=== PATIENT | male | born 1985 | race Caucasian/White ===

== ENCOUNTER 2019-03-07 14:59 | Inpatient (IN) ==
[2019-03-07] MEDS ORDERED: IOPAMIDOL 100 ML BOTTLE IV ONE (15:00)
--- NOTE | 2019-03-07 15:15 | Emergency Department Note ---
Animal Bite HPI - General Chief Complaint: Animal Bite Stated Complaint: spider bite Time Seen by Provider: 03/07/19 15:05 Source: patient Mode of arrival: ambulatory Limitations: no limitations - History of Present Illness HPI Narrative: Patient states he was bit by a spider one week ago. Actually is not quite sure. It awaits her with pain in the back of the neck, he works and lives in [place] and he was placed on an antibiotic 2 days ago when he went in to get checked. He has developed increased redness and swelling, increased discomfort in the area where he thought the bite was , is visiting the area and thus decided to come in for another visit. 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 Denies injury at work. Does have discomfort and pain in the area. There is also a weeping lesion that has developed to the occipital region - Related Data Previous Rx's Medication Instructions Recorded Amoxicillin 500 mg PO Q8H #30 tab 01/14/18 HYDROcodone/APAP 5/325MG [[place] 1 tab PO Q4HP PRN #10 tab 01/14/18 5-325Mg] Allergies Allergy/AdvReac Type Severity Reaction Status Date / Time No Known Drug Allergies Allergy Verified 01/14/18 20:11 Review of Systems All systems ED: reviewed and negative except as stated. Constitutional: Denies: fever, chills, weakness Past Medical History - Past Medical History Medical history: Reports: non-contributory Psychiatric history: Reports: no psych history Surgical history ED: Reports: non-contributory Family history: Reports: no significant family history - Social History smoking status: Never smoker Alcohol use: Reports: Occasionally Drug use: Reports: none Physical Exam Limitations: no limitations General appearance: alert, in no apparent distress Head: atraumatic, normocephalic Eye: Present: normal appearance, PERRL, EOMI, conjunctival injection ENT: Present: mucous membranes moist, TM's normal bilaterally, normal external ear exam, other (he has significant swelling and tenderness to the posterior aspect of the neck, right-sided with a diffuse area of excoriation measuring about 1 x 2 cm. Tenderness and induration measuring about 5 x 6 cm) Neck: Present: full ROM, trachea midline. Absent: meningismus Chest: Present: normal inspection, symmetric chest wall rise. Absent: tenderness Respiratory: Present: normal lung sounds bilaterally. Absent: respiratory distress, rales/crackles Cardiovascular: Present: regular rate, normal rhythm, normal heart sounds Abdominal: Present: soft, normal bowel sounds. Absent: tenderness, guarding Extremities: Present: normal inspection, full ROM. Absent: tenderness Back: Present: normal inspection. Absent: CVA tenderness (R), CVA tenderness (L), vertebral tenderness Neurological: Present: alert, oriented X3, CN II-XII intact, normal gait. Absent: motor sensory deficit Skin: Present: warm, dry, rash, erythema Course - Reevaluation(s) Reevaluation #1: Discussed the case with Dr. lozoya. He wants to get a CT scan with contrast of t he area to evaluate for possible drainage. We will start him on vancomycin given the significance of his infection, elevated white blood cell count, elevated CRP Reevaluation #2: Was called by Dr. Yovani martines regarding CT scan findings of. He does have cellulitis but no area of pockets or pus collection. Plan is to admit for IV antibiotics and. Hospitalist contacted. Also Dr. lozoya notified Reevaluation #3: Discussed possible admission with Dr. Parker, also Dr. lozoya who will be happy to consult. He is planning on seeing the patient tomorrow morning Vital Signs Temperature 99.8 F H 03/07/19 15:00 Pulse Rate 111 H 03/07/19 15:00 Respiratory Rate 18 03/07/19 15:00 Blood Pressure 129/83 03/07/19 15:00 Pulse Oximetry (%) 95 03/07/19 15:00 Temperature 99.8 F H 03/07/19 15:00 Pulse Rate 111 H 03/07/19 15:00 Respiratory Rate 18 03/07/19 15:00 Blood Pressure 129/83 03/07/19 15:00 Pulse Oximetry (%) 95 03/07/19 15:00 Animal Bite - [facility] Narrative Medical decision making narrative: Impression is cellulitis in the head and neck area associated with fever, significant soft tissue swelling, elevated white count and CRP. - Lab Data Lab results reviewed: Yes I reviewed the patient's lab results. Result diagrams: 03/07/19 15:38 03/07/19 15:38 Lab Results 03/07/19 03/07/19 Range/Units 15:38 15:38 WBC 16.3 H (4.5-11.0) K/mcL RBC 4.59 (4.50-5.90) M/mcL Hgb 14.7 (13.5-16.5) g/dL Hct 42.7 (41.0-55.0) % MCV 93.0 (80.0-100.0) fL MCH 32.0 (26.0-34.0) pg MCHC 34.4 (31.0-36.0) g/dL RDW 11.7 (11.5-14.5) % Plt Count 277 (140-440) K/mcL MPV 8.2 (7.4-10.4) fL Gran % 84.4 H (38.0-78.0) % Lymph % (Auto) 9.5 L (15.5-49.0) % [place] % (Auto) 5.7 (1.0-12.0) % Eos % (Auto) 0.2 (0.0-7.0) % Baso % (Auto) 0.2 (0.0-2.0) % Gran # 13.8 H (1.8-8.0) K/mcL Lymph # (Auto) 1.6 (1.5-4.8) K/mcL [place] # (Auto) 0.9 (0.1-0.9) K/mcL Eos # (Auto) 0 (0.0-0.7) K/mcL Baso # (Auto) 0 (0.0-0.3) K/mcL Sodium 133 (133-145) mmol/L Potassium 3.5 (3.3-5.1) mmol/L Chloride 96 (96-108) mmol/L Carbon Dioxide 25 (22-30) mmol/L Anion Gap 12.0 (8-16) BUN 15 (6-20) mg/dl Creatinine 1.3 H (0.7-1.2) mg/dl GFR Calculation 72 Glucose 97 (70-105) mg/dL Calcium 8.7 (8.6-10.4) mg/dl C-Reactive Protein 13.1 H (0.0-0.8) mg/dl - Radiology Data Radiology results reviewed: Yes I reviewed the patient's radiology results. Disposition Pt seen by [facility]/PA only: No Clinical Impression: Cellulitis of multiple sites of head and neck Disposition: Xfer As Outpt/Obs ([facility]) Condition: Good
[2019-03-07 16:02] LABS: Basophils # (Auto) 0 K/mcL (0.0-0.3); Basophils % (Auto) 0.2 % (0.0-2.0); Eosinophils # (Auto) 0 K/mcL (0.0-0.7); Eosinophils % (Auto) 0.2 % (0.0-7.0); Granulocytes % (Auto) 84.4 % (38.0-78.0); Hematocrit 42.7 % (41.0-55.0); Hemoglobin 14.7 g/dL (13.5-16.5); Lymphocytes # (Auto) 1.6 K/mcL (1.5-4.8); Lymphocytes % (Auto) 9.5 % (15.5-49.0); Mean Corpuscular HGB Conc 34.4 g/dL (31.0-36.0); Mean Platelet Volume 8.2 fL (7.4-10.4); Monocytes # (Auto) 0.9 K/mcL (0.1-0.9); Monocytes % (Auto) 5.7 % (1.0-12.0); Platelet Count 277 K/mcL (140-440); RBC 4.59 M/mcL (4.50-5.90); Red Cell Distribution Width 11.7 % (11.5-14.5); WBC 16.3 K/mcL (4.5-11.0)
[2019-03-07] MEDS ORDERED: VANCOMYCIN 1,500 MG in 0.9 % SODIUM CHLORIDE 500 ML IV ONE (16:34)
[2019-03-07 16:35] LABS: Blood Urea Nitrogen 15 mg/dl (6-20); C-Reactive Protein 13.1 mg/dl (0.0-0.8); Calcium 8.7 mg/dl (8.6-10.4); Carbon Dioxide 25 mmol/L (22-30); Chloride 96 mmol/L (96-108); Glomerular Filtration Rate 72; Glucose 97 mg/dL (70-105)
[2019-03-07] MEDS: HYDROmorphone 2 MG/ML VIAL IV PRN ×2 (17:08→17:41)
[2019-03-07] MEDS: ONDANSETRON 4 MG/2 ML VIAL IV ONE ×3 (17:39→22:46)
[2019-03-07] MEDS ORDERED: diphenhydrAMINE 50 MG/ML VIAL IV ONE (18:16)
[2019-03-07] MEDS ORDERED: cefTRIAXone 1 GM VIAL IV ONE (19:08)
[2019-03-07] MEDS ORDERED: CLINDAMYCIN 600 MG in DEXTROSE 5% IN WATER 50 ML IV SCH (19:45)
--- NOTE | 2019-03-07 20:01 | Internal Med History&Physical ---
Medical - H&P: HPI Patient information: Note initiated : 03/07/19 at 7:59 pm Service Date, if different from initiated Date: [] Patient: Elias Dotson 33 y/o M admitted on for Spider Bite. Chief Complaint: [] History of present illness: Mr. Donaldo Osborne is a 33 year old M 33-year-old male presents the ED with increase neck pain and swelling. He believes he was bit by spider 1 week ago and started on antibiotics (Bactrim) by urgent care in [place] 2 days ago but is developed worsening of the symptoms. As well as pain in the area. He is from out of town visiting, but because of the progression decided to come in the ED. In the ED is found to have a leukocytosis and a weeping lesion of his posterior neck as well as involvement of the right side of neck. Patient also mildly tachycardic and elevated creatinine 1.3 as well as elevated CRP. Case was discussed with Dr. Xie and a CT neck with contrast was performed which per notes did not show any abscess or other findings other than cellulitis. She denies any fever chills. Patient denies any headaches although does have history of migraines. No vision changes. 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 Review of Systems: Pertinent positives as above. Denies headache/f ever/chills/nausea/vomiting/chest or abdominal pain/cough/dyspnea/diarrhea. Remaining 10 point review of system reviewed negative Medical - H&P: PMH Medical history: Medical History Brain concussion (Acute) Closed head injury (Acute) Concussion without loss of consciousness (Acute) Cellulitis (Acute) Low Back Pain (Acute) MRSA cellulitis (Acute) Past surgical history: None Family history: States mother and father healthy Social History Denies tobacco alcohol or drugs. Medical - H&P: Meds Home Medications Medication Instructions Recorded Confirmed Type Amoxicillin 500 mg PO Q8H #30 tab 01/14/18 Rx HYDROcodone/APAP 5/325MG [[place] 1 tab PO Q4HP PRN #10 tab 01/14/18 Rx 5-325Mg] Allergies Allergy/AdvReac Type Severity Reaction Status Date / Time No Known Drug Allergies Allergy Verified 01/14/18 20:11 Medical - H&P: Exam - Constitutional Vitals: Temp Pulse Resp BP Pulse Ox 99.8 F H 111 H 18 129/83 95 03/07/19 15:00 03/07/19 15:00 03/07/19 15:00 03/07/19 15:00 03/07/19 15:00 Exam: General: Alert, Awake, No acute Distress Eyes/N/T: EOMI, PEERL, Head/Neck: Erythema/tenderness/warmth to the posterior and right side of the neck. Minimal weeping. Tenderness with rotation because of swelling CV: RRR, No murmurs, normal s1/s2 Pulm: Clear b/l, no wheezing/rhonchi/rales Abd: soft, nontender, +BS x4 Ext: no clubbing/cyanosis/edema Neuro: Alert, no focal deficits, moves all extremities, CN 2-12 grossly intact, symmetrical strength b/l upper/lower, sensations intact b/l upper/lower Skin: warm/dry Medical - H&P: Reslt - Labs CBC & Chem 7: 03/07/19 15:38 03/07/19 15:38 Labs: Short CBC 03/07/19 Range/Units 15:38 WBC 16.3 H (4.5-11.0) K/mcL Hgb 14.7 (13.5-16.5) g/dL Hct 42.7 (41.0-55.0) % Plt Count 277 (140-440) K/mcL BMP 03/07/19 15:38 Sodium 133 Potassium 3.5 Chloride 96 Carbon Dioxide 25 BUN 15 Creatinine 1.3 H Glucose 97 Calcium 8.7 - Impressions CT of the neck with contrast showed cellulitis no abscess per discussion with ED physician awaiting official report Medical - H&P: A/P - Narrative A/P Narrative: A: *Cellulitis of the neck/head: Failed outpatient bactrim. from spider bite -Case discussed with Dr. Granger from ED, also d/w with Dr. sanon -CT neck with cellulitis, no abscess *BASILIO: suspect bactrim related * P: -IV Vanco/clinda -WC/BC pending -IVFs, f/u renal fxn -ID consulted - -ppx: lovenox
--- NOTE | 2019-03-07 20:16 | Ultrasound Report ---
CLINICAL INFORMATION: abscess rt post neck COMPARISON: None. FINDINGS: There is no abscess identified. Diffuse increased echotexture throughout the subcutaneous soft tissues tissues compatible cellulitis. A 5 mm echogenic focus in the subdermal soft tissues with dirty shadowing likely represents a small amount atmospheric air. IMPRESSION: Cellulitis. No evidence of abscess Interpreted and Authenticated by: Freddie Benjamin 03/07/19
--- NOTE | 2019-03-07 20:21 | Cat Scan Report ---
CLINICAL INFORMATION: Spider bite in the posterior neck region now with marked erythema and pain. COMPARISON: None. TECHNIQUE: 80 cc of Isovue-370 were injected intravenously and 25 seconds later, 2.5 mm helical slices were obtained from the inferior orbit through the supraclavicular region. Following reconstruction, 2.5 mm sagittal and coronal reformations were processed. The exam was reviewed at bone and soft tissue windows . The exam was performed using radiation dose optimization techniques including, but not limited to, automated exposure control, adjustment of the mA and/or kV according to patient size and use of iterative reconstruction technique. FINDINGS: There is moderate cellulitis diffusely within the posterior cervical soft tissues. There is no discrete abscess and no radiopaque foreign body appreciated. The jugular /carotid vascular systems are normal. Thyroid is unremarkable. The true and false vocal cords, epiglottis, aryepiglottic folds, tongue base and prevertebral soft tissues are normal. No adenopathy. Cervical spine is normal curvature and alignment without osseous abnormality. The submandibular and parotid glands are normal and symmetric in size configuration and attenuation. Few mildly enlarged cervical lymph nodes seen in both carotid and jugular regions. - Almost certainly benign reactive adenopathy related to cellulitis IMPRESSION: Focal cellulitis in the posterior cervical region. No radiopaque foreign body or discrete abscess. C5-6: moderate broad disc spur complex resulting in mild central canal and moderate right lateral recess IV foraminal narrowing possibly impinging the exiting right C6 nerve root Interpreted and Authenticated by: Freddie Benjamin 03/07/19
[2019-03-07] MEDS ORDERED: VANCOMYCIN PER PHARMACY IV ONE (20:26)
[2019-03-07] MEDS ORDERED: 0.9 % SODIUM CHLORIDE 1,000 ML IV SCH (20:26)
[2019-03-07] MEDS ORDERED: ONDANSETRON 4 MG/2 ML VIAL IV PRN (20:26)
[2019-03-07] MEDS: HYDROcodone/APAP 5/325MG TABLET PO ONE ×2 (21:36→21:59)
[2019-03-07] MEDS: HYDROcodone/APAP 5/325MG TABLET PO PRN (21:37)
[2019-03-07] MEDS: 0.9 % SODIUM CHLORIDE 10 ML SYRINGE IV SCH (21:38)
[2019-03-07] MEDS: LACTOBACILLUS 1 CAPSULE PO SCH (21:42)
[2019-03-07] MEDS: ONDANSETRON 4 MG/2 ML VIAL ONE (21:59)
[2019-03-08 05:19] LABS: Basophils # (Auto) 0 K/mcL (0.0-0.3); Basophils % (Auto) 0.2 % (0.0-2.0); Eosinophils # (Auto) 0.1 K/mcL (0.0-0.7); Eosinophils % (Auto) 1.1 % (0.0-7.0); Hematocrit 40.9 % (41.0-55.0); Lymphocytes # (Auto) 1.7 K/mcL (1.5-4.8); Lymphocytes % (Auto) 14.8 % (15.5-49.0); Mean Cell Volume 93.4 fL (80.0-100.0); Mean Corpuscular HGB Conc 34.2 g/dL (31.0-36.0); Mean Platelet Volume 8.2 fL (7.4-10.4); Monocytes # (Auto) 0.8 K/mcL (0.1-0.9); Monocytes % (Auto) 6.9 % (1.0-12.0); Platelet Count 228 K/mcL (140-440); RBC 4.38 M/mcL (4.50-5.90); Red Cell Distribution Width 12.1 % (11.5-14.5); WBC 11.7 K/mcL (4.5-11.0)
[2019-03-08] MEDS ORDERED: CLINDAMYCIN 600 MG/4 ML VIAL ONE (05:23)
[2019-03-08] MEDS: CLINDAMYCIN 600 MG in DEXTROSE 5% IN WATER 50 ML IV SCH ×2 (05:26→14:53)
[2019-03-08] MEDS: 0.9 % SODIUM CHLORIDE 10 ML SYRINGE IV SCH ×3 (05:29→23:10)
[2019-03-08 05:42] LABS: ALT/SGPT 17 U/l (0-40); AST/SGOT 22 U/l (0-37); Albumin 3.6 gm/dL (3.2-5.2); Albumin/Globulin Ratio 1.2 (1.0-2.3); Alkaline Phosphatase 62 U/L (39-117); Bilirubin,Direct 0.2 mg/dL (0.0-0.3); Bilirubin,Total 1.2 mg/dL (0.0-1.0); Blood Urea Nitrogen 11 mg/dl (6-20); Calcium 8.2 mg/dl (8.6-10.4); Carbon Dioxide 25 mmol/L (22-30); Chloride 102 mmol/L (96-108); Glomerular Filtration Rate 79; Glucose 88 mg/dL (70-105); Lactate Dehydrogenase 208 U/L (94-250); Phosphorous 2.4 mg/dL (2.7-4.5); Triglycerides 48 mg/dl (<150); Uric Acid 5.5 mg/dL (2.5-8.0)
[2019-03-08] MEDS: ONDANSETRON 4 MG/2 ML VIAL ONE (06:01)
[2019-03-08] MEDS: ONDANSETRON 4 MG/2 ML VIAL IV ONE (06:01)
[2019-03-08] MEDS ORDERED: VANCOMYCIN PER PHARMACY IV SCH (07:15)
--- NOTE | 2019-03-08 07:53 | Internal Med Progress Note ---
Medical - PN: Subj Patient information: Note initiated : 03/08/19 at 7:51 am Service Date, if different from initiated Date: [] Patient: Elias Dotson 33 y/o M admitted on 03/07/19 for Spider Bite. Chief Complaint: [] Interval history: Mr. Donaldo Osborne is a 33 year old M 33-year-old male presents the ED with increase neck pain and swelling. He believes he was bit by spider 1 week ago and started on antibiotics (Bactrim) by urgent care in [place] 2 days ago but is developed worsening of the symptoms. As well as pain in the area. He is from out of town visiting, but because of the progression decided to come in the ED. In the ED is found to have a leukocytosis and a weeping lesion of his posterior neck as well as involvement of the right side of neck. Patient also mildly tachycardic and elevated creatinine 1.3 as well as elevated CRP. Case was discussed with Dr. Xie and a CT neck with contrast was performed which per notes did not show any abscess or other findings other than cellulitis. She denies any fever chills. Patient denies any headaches although does have history of migraines. No vision changes. 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 03/08 Next chills warm swollen but feels his swelling has improved. No overnight events. Denies fevers or chills. Review of Systems: denies headache/fever/chills/nausea/vomiting/chest or abdominal pain/cough/dyspnea/diarrhea. Otherwise see above. - Constitutional Vitals: Vital Signs Temp Pulse Resp BP Pulse Ox 98.3 F 74 18 93/56 95 03/08/19 04:12 03/08/19 04:12 03/08/19 04:12 03/08/19 04:12 03/08/19 04:12 Period Temp Pulse Resp BP Sys/Alvarez Pulse Ox Last 24 Hr 98.3 F-99.8 F 74-111 18-20 93-129/56-83 94-96 Intake and Output 03/07/19 03/08/19 03/08/19 21:59 05:59 13:59 Intake Total 311 200 54 Output Total 600 Balance 311 -400 54 Weight 82.1 kg Intake & Output: Intake & Output 03/07/19 03/08/19 03/08/19 21:59 05:59 13:59 Intake Total 311 200 54 Output Total 600 Balance 311 -400 54 Weight 82.1 kg Intake: IV 311 54 Cleocin 600 mg In Dextrose 5% 54 in Water 50 ml @ 100 mls/hr IV Q8H [facility] Rx#:[id number] Vancomycin 1,500 mg In Sodium 311 Chloride 0.9% 500 ml @ 333.3 mls/hr IV ONCE ONE Rx#: [id number] Oral 200 Output: Void Amount 600 Other: Urine Appearance Clear Urine Color Pale # Voids 2 Exam: General: Alert, Awake, No acute Distress Eyes/N/T: EOMI, Head/Neck: Erythema/tenderness/warmth to the posterior and right side of the neck. Minimal weeping. Tenderness with rotation because of swelling CV: RRR, No murmurs, Pulm: Clear b/l, no wheezing/rhonchi/rales Abd: soft, nontender, +BS x4 Ext: no clubbing/cyanosis/edema Neuro: Alert, no focal deficits, moves all extremities, Skin: warm/dry, except neck see above Medical - PN: Obj Da - Labs CBC & Chem 7: 03/08/19 04:23 03/08/19 04:23 Labs: Abnormal Lab Results 03/08/19 03/08/19 03/07/19 04:23 04:23 15:38 WBC 11.7 H RBC 4.38 L Hct 40.9 L Gran % Lymph % (Auto) 14.8 L Gran # 9.0 H Creatinine 1.3 H Calcium 8.2 L Phosphorus 2.4 L Total Bilirubin 1.2 H C-Reactive Protein 13.1 H 03/07/19 15:38 WBC 16.3 H RBC Hct Gran % 84.4 H Lymph % (Auto) 9.5 L Gran # 13.8 H Creatinine Calcium Phosphorus Total Bilirubin C-Reactive Protein Meds: Medications Acetaminophen (Tylenol) 650 mg PO Q6HP PRN; Protocol PRN Reason: Per Pain Protocol/Fever > 101 Hydrocodone Bitart/Acetaminophen ([place] 5/325mg) 1 tab PO Q4HP PRN; Protocol PRN Reason: Per Pain Protocol Enoxaparin Sodium (Lovenox) 40 mg SQ DAILY [facility] Clindamycin Phosphate 600 mg/ (Dextrose) 54 mls @ 100 mls/hr IV Q8H [facility]; Protocol Last Infusion: 03/08/19 06:47 Dose: Infused Documented by: Vancomycin HCl 1,500 mg/ (Sodium Chloride) 500 mls @ 333.3 mls/hr IV Q12H [facility] Lactobacillus Rhamnosus (Culturelle) 1 cap PO BID [facility] Last Admin: 03/07/19 21:42 Dose: Not Given Documented by: Morphine Sulfate (Morphine) 1 - 3 mg IV Q3HP PRN; Protocol PRN Reason: Per Pain Protocol Ondansetron HCl (Zofran) 4 mg IV Q6HP PRN PRN Reason: Nausea And Vomiting Sodium Chloride (Saline Flush) 10 ml IV Q8 [facility] Last Admin: 03/08/19 05:29 Dose: 10 ml Documented by: Vancomycin HCl (Vancomycin Per Pharmacy) 1 order IV UD [facility]; Protocol Medical - PN: A/P - Time Spent With Patient Total time spent is greater than 50% in coordination of care (as documented) at patient's floor/unit and/or counseling patient: - Narrative A/P Narrative: A: *Cellulitis of the neck/head: Failed outpatient bactrim. from spider bite -Case discussed with Dr. Granger from ED, also d/w with Dr. sanon -CT neck with cellulitis, no abscess -gram stain with GPC in clusters *Leukocytosis: 2/2 above, improving *BASILIO: suspect bactrim related, improving * P: -IV Vanco/clinda -WC/BC pending -ID consulted -ppx: lovenox
[2019-03-08] MEDS: LACTOBACILLUS 1 CAPSULE PO SCH ×2 (08:51→21:50)
[2019-03-08] MEDS: ENOXAPARIN 40 MG/0.4 ML SYRINGE SQ SCH (08:51)
[2019-03-08] MEDS: HYDROcodone/APAP 5/325MG TABLET PO PRN (08:51)
[2019-03-08] MEDS: VANCOMYCIN 1,500 MG in 0.9 % SODIUM CHLORIDE 500 ML IV SCH ×2 (09:47→20:50)
[2019-03-08] MEDS ORDERED: diphenhydrAMINE 50 MG/ML VIAL IV PRN (11:08)
--- NOTE | 2019-03-08 11:22 | Discharge Summary ---
Medical - DS: Prov Patient information: Note initiated : 03/08/19 at 11:20 am Service Date, if different from initiated Date: [] Patient: Elias Dotson a 33 y/o M admitted on 03/07/19 for Spider Bite. Chief Complaint: [] Date of admission: 03/07/19 20:22 Discharge date: 03/11/19 Consults: 03/07/19 Consult to Physician [CONS] Stat Comment: Consulting Provider: Bunny Mclaughlin Reason For Exam: Physician to Consult 03/07/19 20:26 Consult to Physician [CONS] Routine Comment: Consulting Provider: Roberto Carlos Patino Reason For Exam: Physician to Consult Medical - DS: Meds - Discharge Medications Prescriptions: ceFAZolin [Ancef] 2 gm IV Q8H #42 vial Prescription Printed Medical - DS: Hosp Hospital Course: Mr. Donaldo Osborne is a 33 year old M 33-year-old male presents the ED with increase neck pain and swelling. He believes he was bit by spider 1 week ago and started on antibiotics (Bactrim) by urgent care in [place] 2 days ago but is developed worsening of the symptoms. As well as pain in the area. He is from out of town visiting, but because of the progression decided to come in the ED. In the ED is found to have a leukocytosis and a weeping lesion of his posterior neck as well as involvement of the right side of neck. Patient also mildly tachycardic and elevated creatinine 1.3 as well as elevated CRP. Case was discussed with Dr. Xie and a CT neck with contrast was performed which per notes did not show any abscess or other findings other than cellulitis. She denies any fever chills. Patient denies any headaches although does have history of migraines. No vision changes. 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 03/08 Next chills warm swollen but feels his swelling has improved. No overnight events. Denies fevers or chills. 03/09 Patient fevers overnight. He reports increased swelling around the right side of his neck. Poor sleep. Transthoracic echo with no vegetations noted. Blood cultures growing MSSA. Denies shortness of breath or cough 03/10 Slept much better. Feeling better. Still has swelling but it feels like the swelling has improved some is able to rotate his neck a little bit he easier. No fevers overnight. No nausea. No chest pain cough or shortness of breath 03/11 Feeling well. Swelling continues to improve. No new complaints overnight events. Stable for discharge with antibiotic plan. Discharge diagnosis: Cellulitis of the neck, BASILIO - Time Spent with Patient Total time spent providing and/or coordinating discharge services: Greater than 30 minutes Medical - DS: Exam - Constitutional Vitals: Vital Signs Temp Pulse Pulse Resp BP BP Pulse Ox 03/08/19 04:12 98.3 F 74 18 93/56 95 03/07/19 23:00 98.4 F 86 18 114/71 96 03/07/19 20:50 98.8 F 88 20 118/75 94 03/07/19 20:34 99.8 F H 111 H 18 129/83 03/07/19 15:00 99.8 F H 111 H 18 129/83 95 Intake and Output 03/07/19 03/08/19 03/08/19 21:59 05:59 13:59 Intake Total 408 487 5990 Output Total 600 Balance 311 -400 1387 Intake: IV 311 1387 Sodium Chloride 0.9% 1,000 ml @ 1000 150 mls/hr IV .Q6H40M [facility] Rx#: [id number] Cleocin 600 mg In Dextrose 5% 54 in Water 50 ml @ 100 mls/hr IV Q8H [facility] Rx#:[id number] Vancomycin 1,500 mg In Sodium 311 333 Chloride 0.9% 500 ml @ 333.3 mls/hr IV ONCE ONE Rx#: [id number] Oral 200 Output: Void Amount 600 Other: Urine Appearance Clear Urine Color Pale # Voids 2 Weight 82.1 kg Medical - DS: Data Labs on day of discharge: Labs from last 24 hours 03/08/19 03/08/19 03/07/19 04:23 04:23 15:38 WBC 11.7 H RBC 4.38 L Hgb 14.0 Hct 40.9 L MCV 93.4 MCH 31.9 MCHC 34.2 RDW 12.1 Plt Count 228 MPV 8.2 Gran % 77.0 Lymph % (Auto) 14.8 L [place] % (Auto) 6.9 Eos % (Auto) 1.1 Baso % (Auto) 0.2 Gran # 9.0 H Lymph # (Auto) 1.7 [place] # (Auto) 0.8 Eos # (Auto) 0.1 Baso # (Auto) 0 Sodium 137 133 Potassium 3.8 3.5 Chloride 102 96 Carbon Dioxide 25 25 Anion Gap 10.0 12.0 BUN 11 15 Creatinine 1.2 1.3 H GFR Calculation 79 72 Glucose 88 97 Uric Acid 5.5 Calcium 8.2 L 8.7 Phosphorus 2.4 L Magnesium 2.3 Total Bilirubin 1.2 H Direct Bilirubin 0.2 GGT 13 AST 22 ALT 17 Alkaline Phosphatase 62 Lactate Dehydrogenase 208 C-Reactive Protein 13.1 H Total Protein 6.6 Albumin 3.6 Globulin 3.0 Albumin/Globulin Ratio 1.2 Triglycerides 48 03/07/19 15:38 WBC 16.3 H RBC 4.59 Hgb 14.7 Hct 42.7 MCV 93.0 MCH 32.0 MCHC 34.4 RDW 11.7 Plt Count 277 MPV 8.2 Gran % 84.4 H Lymph % (Auto) 9.5 L [place] % (Auto) 5.7 Eos % (Auto) 0.2 Baso % (Auto) 0.2 Gran # 13.8 H Lymph # (Auto) 1.6 [place] # (Auto) 0.9 Eos # (Auto) 0 Baso # (Auto) 0 Sodium Potassium Chloride Carbon Dioxide Anion Gap BUN Creatinine GFR Calculation Glucose Uric Acid Calcium Phosphorus Magnesium Total Bilirubin Direct Bilirubin GGT AST ALT Alkaline Phosphatase Lactate Dehydrogenase C-Reactive Protein Total Protein Albumin Globulin Albumin/Globulin Ratio Triglycerides Medical - DS: A/P - Patient/Caregiver Discharge Instructions Activity: increase activity as tolerated Diet: Regular Diet Additional Instructions: f/u with PCP within 7 days Prescriptions: ceFAZolin [Ancef] 2 gm IV Q8H #42 vial Prescription Printed Other Amb Orders: Basic Metabolic Panel Location: None Selected Complete Blood Count Location: None Selected - Follow up Plan Follow up with: Roberto Carlos Patino MD [Physician] - Disposition: Home, Self-Care Prognosis: Fair Rehab Potential: Fair Overall status at discharge: patient is progressing back to baseline
[2019-03-08] MEDS ORDERED: ceFAZolin 2 GM in DEXTROSE 5% IN WATER 50 ML IV SCH (15:15)
[2019-03-08] MEDS: ceFAZolin 1 GM VIAL IV SCH ×2 (16:52→23:09)
[2019-03-08] MEDS: ACETAMINOPHEN 325 MG TABLET PO PRN (18:51)
[2019-03-09] MEDS: ACETAMINOPHEN 325 MG TABLET PO PRN ×2 (03:51→13:23)
[2019-03-09] MEDS: 0.9 % SODIUM CHLORIDE 10 ML SYRINGE IV SCH ×3 (05:34→21:12)
[2019-03-09] MEDS: ceFAZolin 1 GM VIAL IV SCH ×3 (05:34→21:59)
--- NOTE | 2019-03-09 07:07 | Internal Med Progress Note ---
Medical - PN: Subj Patient information: Note initiated : 03/09/19 at 7:02 am Service Date, if different from initiated Date: [] Patient: Elias Dotson 33 y/o M admitted on 03/07/19 for Spider Bite. Chief Complaint: [] Interval history: Mr. Donaldo Osborne is a 33 year old M 33-year-old male presents the ED with increase neck pain and swelling. He believes he was bit by spider 1 week ago and started on antibiotics (Bactrim) by urgent care in [place] 2 days ago but is developed worsening of the symptoms. As well as pain in the area. He is from out of town visiting, but because of the progression decided to come in the ED. In the ED is found to have a leukocytosis and a weeping lesion of his posterior neck as well as involvement of the right side of neck. Patient also mildly tachycardic and elevated creatinine 1.3 as well as elevated CRP. Case was discussed with Dr. Xie and a CT neck with contrast was performed which per notes did not show any abscess or other findings other than cellulitis. She denies any fever chills. Patient denies any headaches although does have history of migraines. No vision changes. 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 03/08 Next chills warm swollen but feels his swelling has improved. No overnight events. Denies fevers or chills. 03/09 Patient fevers overnight. He reports increased swelling around the right side of his neck. Poor sleep. Transthoracic echo with no vegetations noted. Blood cultures growing MSSA. Denies shortness of breath or cough Review of Systems: denies headache/fever/chills/nausea/vomiting/chest or abdominal pain/cough/dyspnea/diarrhea. Otherwise see above. - Constitutional Vitals: Vital Signs Temp Pulse Resp BP Pulse Ox 98.3 F 78 18 102/60 98 03/09/19 04:36 03/09/19 03:44 03/09/19 03:44 03/09/19 03:44 03/09/19 03:44 Period Temp Pulse Resp BP Sys/Alvarez Pulse Ox Last 24 Hr 98.3 F-104.0 F 76-105 16-20 99-115/54-61 92-98 Intake and Output 10/03/09/19 03/09/19 21:59 05:59 13:59 Intake Total 1264 1160 500 Output Total 400 1325 Balance 864 -165 500 Weight 82.236 kg Intake & Output: Intake & Output 03/08/19 03/09/19 03/09/19 21:59 05:59 13:59 Intake Total 1264 1160 500 Output Total 400 1325 Balance 864 -165 500 Weight 82.236 kg Intake: IV 54 500 Cleocin 600 mg In Dextrose 5% 54 in Water 50 ml @ 100 mls/hr IV Q8H [facility] Rx#:[id number] Vancomycin 1,500 mg In Sodium 500 Chloride 0.9% 500 ml @ 333.3 mls/hr IV Q12H [facility] Rx#: [id number] Oral 1160 1160 IV - Manual Only 50 Output: Void Amount 400 1325 Other: Meal Dinner Nourishment/Supplement Percent of Meal Consumed 75% 100% Feeding Ability Independent Independent Urine Appearance Clear Clear Urine Color [place] Bright Yellow Urine Odor Normal Normal # Voids 4 Exam: General: Alert, Awake, No acute Distress Eyes/N/T: EOMI, Head/Neck: Erythema/tenderness/warmth to the posterior and right side of the neck. Tenderness with rotation because of swelling. redness has not extended, maybe mildly more swollen than on admit. CV: RRR, no murmur Pulm: Clear b/l, no wheezing/rhonchi/rales Abd: soft, nontender, +BS x4 Ext: no clubbing/cyanosis/edema Neuro: Alert, no focal deficits, moves all extremities, Skin: warm/dry, except neck see above Medical - PN: Obj Da - Labs CBC & Chem 7: 03/08/19 04:23 03/08/19 04:23 Labs: Abnormal Lab Results 03/08/19 03/08/19 03/07/19 04:23 04:23 15:38 WBC 11.7 H RBC 4.38 L Hct 40.9 L Gran % Lymph % (Auto) 14.8 L Gran # 9.0 H Creatinine 1.3 H Calcium 8.2 L Phosphorus 2.4 L Total Bilirubin 1.2 H C-Reactive Protein 13.1 H 03/07/19 15:38 WBC 16.3 H RBC Hct Gran % 84.4 H Lymph % (Auto) 9.5 L Gran # 13.8 H Creatinine Calcium Phosphorus Total Bilirubin C-Reactive Protein Meds: Medications Acetaminophen (Tylenol) 650 mg PO Q6HP PRN; Protocol PRN Reason: Per Pain Protocol/Fever > 101 Last Admin: 03/09/19 03:51 Dose: 650 mg Documented by: Hydrocodone Bitart/Acetaminophen ([place] 5/325mg) 1 tab PO Q4HP PRN; Protocol PRN Reason: Per Pain Protocol Last Admin: 03/08/19 08:51 Dose: 1 tab Documented by: Cefazolin Sodium (Ancef) 2 gm IV Q8H [facility] Last Admin: 03/09/19 05:34 Dose: 2 gm Documented by: Diphenhydramine HCl (Benadryl) 25 mg IV Q4-6HP PRN PRN Reason: Allergic Symptoms Last Admin: 03/08/19 12:08 Dose: 25 mg Documented by: Enoxaparin Sodium (Lovenox) 40 mg SQ DAILY [facility] Last Admin: 03/08/19 08:51 Dose: Not Given Documented by: Vancomycin HCl 1,500 mg/ (Sodium Chloride) 500 mls @ 333.3 mls/hr IV Q12H [facility] Last Infusion: 03/09/19 06:35 Dose: Infused Documented by: Lactobacillus Rhamnosus (Culturelle) 1 cap PO BID [facility] Last Admin: 03/08/19 21:50 Dose: 1 cap Documented by: Morphine Sulfate (Morphine) 1 - 3 mg IV Q3HP PRN; Protocol PRN Reason: Per Pain Protocol Ondansetron HCl (Zofran) 4 mg IV Q6HP PRN PRN Reason: Nausea And Vomiting Sodium Chloride (Saline Flush) 10 ml IV Q8 [facility] Last Admin: 03/09/19 05:34 Dose: 10 ml Documented by: Vancomycin HCl (Vancomycin Per Pharmacy) 1 order IV UD [facility]; Protocol Medical - PN: A/P - Time Spent With Patient Total time spent is greater than 50% in coordination of care (as documented) at patient's floor/unit and/or counseling patient: - Narrative A/P Narrative: A: *Cellulitis of the neck/head: Failed outpatient bactrim. from spider bite -Case discussed with Dr. Granger from ED, also d/w with Dr. sanon -CT neck with cellulitis, no abscess -gram stain with GPC in clusters *MSSA Bacteremia: 2/2 above -TTE no vegetations *Leukocytosis/fever: 2/2 above -leukocytosis improving -fever o/n *BASILIO: suspect bactrim related, improving * P: -IV Vanco/Cefazolin -WC/BC pending -pending f/u BC -ID following -ppx: lovenox
[2019-03-09 09:08] LABS: Basophils # (Auto) 0 K/mcL (0.0-0.3); Basophils % (Auto) 0.1 % (0.0-2.0); Eosinophils # (Auto) 0.1 K/mcL (0.0-0.7); Eosinophils % (Auto) 1.3 % (0.0-7.0); Granulocytes % (Auto) 71.3 % (38.0-78.0); Hematocrit 37.9 % (41.0-55.0); Hemoglobin 12.9 g/dL (13.5-16.5); Lymphocytes # (Auto) 1.6 K/mcL (1.5-4.8); Lymphocytes % (Auto) 17.9 % (15.5-49.0); Mean Cell Volume 93.5 fL (80.0-100.0); Mean Corpuscular HGB Conc 34.1 g/dL (31.0-36.0); Mean Platelet Volume 8.8 fL (7.4-10.4); Monocytes # (Auto) 0.9 K/mcL (0.1-0.9); Monocytes % (Auto) 9.4 % (1.0-12.0); Platelet Count 223 K/mcL (140-440); RBC 4.06 M/mcL (4.50-5.90); Red Cell Distribution Width 12.1 % (11.5-14.5)
[2019-03-09 09:35] LABS: Chloride 99 mmol/L (96-108)
[2019-03-09 09:37] LABS: ALT/SGPT 20 U/l (0-40); AST/SGOT 23 U/l (0-37); Albumin 3.6 gm/dL (3.2-5.2); Albumin/Globulin Ratio 1.3 (1.0-2.3); Alkaline Phosphatase 59 U/L (39-117); Bilirubin,Direct < 0.2 mg/dL (0.0-0.3); Bilirubin,Total 0.6 mg/dL (0.0-1.0); Blood Urea Nitrogen 9 mg/dl (6-20); C-Reactive Protein 15.1 mg/dl (0.0-0.8); Calcium 8.2 mg/dl (8.6-10.4); Carbon Dioxide 28 mmol/L (22-30); Globulin 2.8 gm/dL (2.2-3.7); Glomerular Filtration Rate 98; Glucose 99 mg/dL (70-105); Lactate Dehydrogenase 218 U/L (94-250); Phosphorous 2.4 mg/dL (2.7-4.5); Triglycerides 83 mg/dl (<150); Uric Acid 4.8 mg/dL (2.5-8.0)
[2019-03-09 10:18] LABS: Erythrocyte Sedimentation Rate 34 mm/hr (0-15)
[2019-03-09] MEDS: ENOXAPARIN 40 MG/0.4 ML SYRINGE SQ SCH (12:26)
[2019-03-09] MEDS: LACTOBACILLUS 1 CAPSULE PO SCH ×2 (12:27→21:12)
[2019-03-09] MEDS: HYDROcodone/APAP 5/325MG TABLET PO PRN (13:23)
--- NOTE | 2019-03-09 14:23 | Infectious Disease Consult ---
History of Present Illness Patient information: Note initiated : 03/09/19 at 2:18 pm Service Date, if different from initiated Date: [] Patient: Elias Dotson 33 y/o M admitted on 03/07/19 for Spider Bite. Chief Complaint: [] Consult date: 03/09/19 Requesting Physician: Bunny Mclaughlin Reason for Consult: MSSA bacteremia Chief complaint: my neck hurts History of present illness: 33-year-old man who is otherwise healthy and lives in [place] was admitted to [facility] on 03/07, with c/o neck pain and swelling going on since last 1 week. He thought he was bit by a spider and started on oral Bactrim by urgent care in [place] but his symptoms did not improve. 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 In the [facility] ED, his VS were: temp 99.8F, HR 111, BP 129/83, RR 18, satting well on RA. Physical exam concerning for weeping lesion on neck. WBC 16.3 k with neutrophilic predominance, Cr 1.3. CT neck with contrast did not show any abscess or other findings other than local cellulitis. Case was discussed with me with recs for sending 2 sets of blood Cx, starting pt on Iv Vanc and IV Clindamycin and following spread of neck cellulitis. Pt continued to have fevers after admission. His blood Cx came back +ve for Staphyloccoccus aureus with neg mecA gene. Local wound Cx from neck also grew MSSA. Pt's antibiotics were changed to IV Cefazolin yesterday and IV Clindamycin was stopped. Today IV Vanc was stopped, while continuing IV Cefazolin. At time of visit, pt reported feeling better although still c/o pain in neck. He denied any diarrhea, n/v. Feels his fever coming down. Confirmed above Hx. 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 Denies seeing a spider. Denied any joint pain. Endorsed pain under right clavicle, and on roght side of chest magdalena with breathing. Review of Systems All systems PM: reviewed and no additional remarkable complaints except as stated Constitutional: as per HPI Past History Past medical history: past hx of MRSA infection 2014 Past family history: no sick contacts Past social history: doesnot use injection drugs Medications and Allergies Home Medications Medication Instructions Recorded Confirmed Type Sulfamethoxazole/Trimethoprim 1 PO BID 03/08/19 History [Bactrim Ds Tablet] Allergies Allergy/AdvReac Type Severity Reaction Status Date / Time No Known Drug Allergies Allergy Verified 01/14/18 20:11 Physical Examination Vital signs: Temp Pulse Resp BP Pulse Ox 36.4 C 53 L 16 105/71 96 03/09/19 08:00 03/09/19 08:00 03/09/19 08:00 03/09/19 08:00 03/09/19 08:00 General appearance: appears uncomfortable Eyes pulmonary: nonicteric ENT: oropharynx moist Auscultation: bilateral: clear Cardiovascular: regular rate and rhythm, other (no murmurs heard) Gastrointestinal: normoactive bowel sounds (neck: Rt side of neck has a huge carbuncle with 3 sinus tracts. Redness, swelling, tenderness, warmth around the carbuncle. Minimal pus drainage with pressure. No visible dilated veins in neck) Results - Laboratory Findings CBC and BMP: 03/09/19 08:17 03/09/19 08:17 Abnormal lab findings: Abnormal Labs 03/07/19 03/07/19 03/08/19 15:38 15:38 04:23 WBC 16.3 H 11.7 H RBC 4.38 L Hgb Hct 40.9 L Gran % 84.4 H Lymph % (Auto) 9.5 L 14.8 L Gran # 13.8 H 9.0 H ESR Creatinine 1.3 H Calcium Phosphorus Total Bilirubin C-Reactive Protein 13.1 H 03/08/19 03/09/19 03/09/19 04:23 08:17 08:17 WBC RBC 4.06 L Hgb 12.9 L Hct 37.9 L Gran % Lymph % (Auto) Gran # ESR 34 H Creatinine Calcium 8.2 L 8.2 L Phosphorus 2.4 L 2.4 L Total Bilirubin 1.2 H C-Reactive Protein 15.1 H Microbiology: Microbiology 03/07/19 15:45 Neck - Insect Gram Stain - Final 03/07/19 15:45 Neck - Insect Abscess Culture - Final Staphylococcus aureus 03/07/19 20:02 Blood Blood Culture - Preliminary 03/08/19 17:15 Nose MRSA (PCR) - Final 03/07/19 19:56 Blood Blood Culture - Preliminary Gram positive cocci Assessment and Plan - Narrative A/P Narrative: A: 1. MSSA bacteremia: 05/28 blood Cx on 03/07 - on IV Cefazolin. On IV vanc (stopped 03/09) and Clindamycin (stopped 03/08) - TTE neg for any vegetations - sec to (2) 2. MSSA posterior neck carbuncle - If neck pain, clavicle pain and right sided chest pain persist; local deep venous thrombosis, spread of infection must be ruled out with imaging Recommendations: - Continue IV cefazolin 2 gm 8 hrs - await repeat blood Cx sent this am. if neg for 48 hrs, a midline could be placed - Pt not a MRSA carrier per nasal swab, and on wound Cx. Given last MRSA swab +ve was in 2014; he does not need contact isolation - ice-packs for the neck to help decrease inflammation - If neck pain, chest pain and pain around the clavicle persist or worsen; repeat CT neck and chest tomorrow will follow Roberto Carlos Patino MD Infectious diseases
[2019-03-10] MEDS: HYDROcodone/APAP 5/325MG TABLET PO PRN ×2 (04:16→22:37)
[2019-03-10] MEDS: ceFAZolin 1 GM VIAL IV SCH ×3 (06:28→22:32)
[2019-03-10] MEDS: 0.9 % SODIUM CHLORIDE 10 ML SYRINGE IV SCH ×3 (06:29→22:32)
[2019-03-10] MEDS ORDERED: FUROSEMIDE 20 MG/2 ML VIAL IV ONE (07:49)
--- NOTE | 2019-03-10 07:50 | Internal Med Progress Note ---
Medical - PN: Subj Patient information: Note initiated : 03/10/19 at 7:45 am Service Date, if different from initiated Date: [] Patient: Elias Dotson 33 y/o M admitted on 03/07/19 for Spider Bite. Chief Complaint: [] Interval history: Mr. Donaldo Osborne is a 33 year old M 33-year-old male presents the ED with increase neck pain and swelling. He believes he was bit by spider 1 week ago and started on antibiotics (Bactrim) by urgent care in [place] 2 days ago but is developed worsening of the symptoms. As well as pain in the area. He is from out of town visiting, but because of the progression decided to come in the ED. In the ED is found to have a leukocytosis and a weeping lesion of his posterior neck as well as involvement of the right side of neck. Patient also mildly tachycardic and elevated creatinine 1.3 as well as elevated CRP. Case was discussed with Dr. Xie and a CT neck with contrast was performed which per notes did not show any abscess or other findings other than cellulitis. She denies any fever chills. Patient denies any headaches although does have history of migraines. No vision changes. 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 03/08 Next chills warm swollen but feels his swelling has improved. No overnight events. Denies fevers or chills. 03/09 Patient fevers overnight. He reports increased swelling around the right side of his neck. Poor sleep. Transthoracic echo with no vegetations noted. Blood cultures growing MSSA. Denies shortness of breath or cough 03/10 Slept much better. Feeling better. Still has swelling but it feels like the swelling has improved some is able to rotate his neck a little bit he easier. No fevers overnight. No nausea. No chest pain cough or shortness of breath Review of Systems: denies headache/fever/chills/nausea/vomiting/chest or abdominal pain/cough/dysp katya/diarrhea. Otherwise see above. - Constitutional Vitals: Vital Signs Temp Pulse Resp BP Pulse Ox 98.4 F 63 18 102/60 97 03/10/19 04:03 03/10/19 04:03 03/10/19 04:03 03/10/19 04:03 03/10/19 04:03 Period Temp Pulse Resp BP Sys/Alvarez Pulse Ox Last 24 Hr 97.6 F-98.5 F 53-85 16-18 102-120/60-78 96-98 Intake and Output 03/09/19 03/10/19 03/10/19 21:59 05:59 13:59 Intake Total 800 Balance 800 Weight 82.236 kg 83.915 kg Intake & Output: Intake & Output 03/09/19 03/10/19 03/10/19 21:59 05:59 13:59 Intake Total 800 Balance 800 Weight 82.236 kg 83.915 kg Intake: Oral 800 Other: Urine Appearance Clear Urine Color Bright Yellow Urine Odor Normal # Voids 5 Exam: General: Alert, Awake, No acute Distress Eyes/N/T: EOMI, Head/Neck: Erythema/tenderness/warmth to the posterior and right side of the neck -this now appears to be improving mildly CV: RRR, no murmur Pulm: Clear b/l, no wheezing/rhonchi/rales Abd: soft, nontender, +BS x4 Ext: no clubbing/cyanosis/edema Neuro: Alert, no focal deficits, moves all extremities, Skin: warm/dry, except neck see above Medical - PN: Obj Da - Labs CBC & Chem 7: 03/09/19 08:17 03/09/19 08:17 Labs: Abnormal Lab Results 03/09/19 03/09/19 03/08/19 08:17 08:17 04:23 WBC RBC 4.06 L Hgb 12.9 L Hct 37.9 L Gran % Lymph % (Auto) Gran # ESR 34 H Creatinine Calcium 8.2 L 8.2 L Phosphorus 2.4 L 2.4 L Total Bilirubin 1.2 H C-Reactive Protein 15.1 H 03/08/19 03/07/19 03/07/19 04:23 15:38 15:38 WBC 11.7 H 16.3 H RBC 4.38 L Hgb Hct 40.9 L Gran % 84.4 H Lymph % (Auto) 14.8 L 9.5 L Gran # 9.0 H 13.8 H ESR Creatinine 1.3 H Calcium Phosphorus Total Bilirubin C-Reactive Protein 13.1 H Meds: Medications Acetaminophen (Tylenol) 650 mg PO Q6HP PRN; Protocol PRN Reason: Per Pain Protocol/Fever > 101 Last Admin: 03/09/19 13:23 Dose: 650 mg Documented by: Hydrocodone Bitart/Acetaminophen ([place] 5/325mg) 1 tab PO Q4HP PRN; Protocol PRN Reason: Per Pain Protocol Last Admin: 03/10/19 04:16 Dose: 1 tab Documented by: Cefazolin Sodium (Ancef) 2 gm IV Q8H [facility] Last Admin: 03/10/19 06:28 Dose: 2 gm Documented by: Diphenhydramine HCl (Benadryl) 25 mg IV Q4-6HP PRN PRN Reason: Allergic Symptoms Last Admin: 03/08/19 12:08 Dose: 25 mg Documented by: Enoxaparin Sodium (Lovenox) 40 mg SQ DAILY [facility] Last Admin: 03/09/19 12:26 Dose: 40 mg Documented by: Lactobacillus Rhamnosus (Culturelle) 1 cap PO BID [facility] Last Admin: 03/09/19 21:12 Dose: 1 cap Documented by: Morphine Sulfate (Morphine) 1 - 3 mg IV Q3HP PRN; Protocol PRN Reason: Per Pain Protocol Ondansetron HCl (Zofran) 4 mg IV Q6HP PRN PRN Reason: Nausea And Vomiting Sodium Chloride (Saline Flush) 10 ml IV Q8 [facility] Last Admin: 03/10/19 06:29 Dose: 10 ml Documented by: Vancomycin HCl (Vancomycin Per Pharmacy) 1 order IV UD [facility]; Protocol Medical - PN: A/P - Time Spent With Patient Total time spent is greater than 50% in coordination of care (as documented) at patient's floor/unit and/or counseling patient: - Narrative A/P Narrative: A: *Cellulitis of the neck/head: Failed outpatient bactrim. from spider bite -Case discussed with Dr. Granger from ED, also d/w with Dr. sanon -CT neck with cellulitis, no abscess *MSSA Bacteremia: 2/2 above -TTE no vegetations *Leukocytosis/fever: 2/2 above -leukocytosis resolved -afebrile o/n *BASILIO: suspect bactrim related, improving * P: -IV Cefazolin -ID folowing -may repeat CT neck with chest if neck pain continues or worsens -WC/BC pending, pending f/u BC - -ppx: lovenox
[2019-03-10] MEDS: ENOXAPARIN 40 MG/0.4 ML SYRINGE SQ SCH (09:56)
[2019-03-10] MEDS: LACTOBACILLUS 1 CAPSULE PO SCH ×2 (09:56→21:01)
--- NOTE | 2019-03-10 14:50 | Infectious Disease Prog Note ---
Subjective Patient information: Note initiated : 03/10/19 at 2:34 pm Service Date, if different from initiated Date: [] Patient: Elias Dotson 33 y/o M admitted on 03/07/19 for Spider Bite. Chief Complaint: [] Interval history: Pt feels better than yesterday. Denied any fever, chills, n/v, diarrhea. Feels h is neck pain is quite better. Discussed plans to do 2 weeks of IV Cefazolin through a CADD pump and follow up. Objective Objective Narrative: ao x 3, in nad neck wound: getting smaller, and less red. Minimally tender. no active drainage, swelling improved compared to yesterday chest cta except for right lower chest posteriorly s1 s2 normal, no murmurs auscultated bs ++ nttd no joint swelling, redness no edema in dependent areas - Vital Signs Vital signs: Vital Signs Temp Pulse Resp BP Pulse Ox 03/10/19 12:00 36.1 C 55 L 16 110/70 98 03/10/19 08:00 35.9 C L 58 L 16 113/66 99 03/10/19 04:03 36.9 C 63 18 102/60 97 03/10/19 02:02 98 03/10/19 00:20 36.6 C 74 18 120/78 98 03/09/19 20:00 36.9 C 85 18 115/62 98 03/09/19 16:00 36.9 C 65 18 103/66 97 Intake and Output 03/10/19 03/10/19 03/10/19 05:59 13:59 21:59 Intake Total 800 400 Balance 800 400 Intake: Oral 800 400 Other: # Voids 5 3 Weight 83.915 kg Intake & Output: Intake & Output 03/10/19 03/10/19 03/10/19 05:59 13:59 21:59 Intake Total 800 400 Balance 800 400 Weight 83.915 kg Intake: Oral 800 400 Other: # Voids 5 3 - Lab 03/09/19 08:17 03/09/19 08:17 Most recent lab results Calcium 8.2 mg/dl (8.6-10.4) L 03/09/19 08:17 Phosphorus 2.4 mg/dL (2.7-4.5) L 03/09/19 08:17 Magnesium 2.4 mg/dL (1.6-2.5) 03/09/19 08:17 Microbiology 03/09/19 08:17 Blood Blood Culture - Preliminary 03/09/19 08:11 Blood Blood Culture - Preliminary 03/07/19 20:02 Blood Blood Culture - Preliminary 03/07/19 15:45 Neck - Insect Gram Stain - Final 03/07/19 15:45 Neck - Insect Abscess Culture - Final Staphylococcus aureus 03/08/19 17:15 Nose MRSA (PCR) - Final 03/07/19 19:56 Blood Blood Culture - Preliminary Gram positive cocci Medications Active Medications: Acetaminophen (Tylenol) 650 mg PO Q6HP PRN; Protocol PRN Reason: Per Pain Protocol/Fever > 101 Last Admin: 03/09/19 13:23 Dose: 650 mg Documented by: Admin: 03/09/19 03:51 Dose: 650 mg Documented by: Admin: 03/08/19 18:51 Dose: 650 mg Documented by: KYLEE Hydrocodone Bitart/Acetaminophen ([place] 5/325mg) 1 tab PO Q4HP PRN; Protocol PRN Reason: Per Pain Protocol Last Admin: 03/10/19 04:16 Dose: 1 tab Documented by: Admin: 03/09/19 13:23 Dose: 1 tab Documented by: Admin: 03/08/19 08:51 Dose: 1 tab Documented by: KERRIE Cefazolin Sodium (Ancef) 2 gm IV Q8H [facility] Last Admin: 03/10/19 06:28 Dose: 2 gm Documented by: Admin: 03/09/19 21:59 Dose: 2 gm Documented by: Admin: 03/09/19 13:24 Dose: 2 gm Documented by: Admin: 03/09/19 05:34 Dose: 2 gm Documented by: Admin: 03/08/19 23:09 Dose: 2 gm Documented by: Admin: 03/08/19 16:52 Dose: 2 gm Documented by: KERRIE Diphenhydramine HCl (Benadryl) 25 mg IV Q4-6HP PRN PRN Reason: Allergic Symptoms Last Admin: 03/08/19 12:08 Dose: 25 mg Documented by: KERRIE Enoxaparin Sodium (Lovenox) 40 mg SQ DAILY [facility] Admin: 03/10/19 09:56 Dose: 40 mg Documented by: Admin: 03/09/19 12:26 Dose: 40 mg Documented by: Admin: 03/08/19 08:51 Dose: Not Given Documented by: KERRIE Non-Admin Reason: Patient Refused Lactobacillus Rhamnosus (Culturelle) 1 cap PO BID [facility] Admin: 03/10/19 09:56 Dose: 1 cap Documented by: Admin: 03/09/19 21:12 Dose: 1 cap Documented by: Admin: 03/09/19 12:27 Dose: 1 cap Documented by: Admin: 03/08/19 21:50 Dose: 1 cap Documented by: Admin: 03/08/19 08:51 Dose: 1 cap Documented by: Admin: 03/07/19 21:42 Dose: Not Given Documented by: JOSE Non-Admin Reason: Unavailable Morphine Sulfate (Morphine) 1 - 3 mg IV Q3HP PRN; Protocol PRN Reason: Per Pain Protocol Ondansetron HCl (Zofran) 4 mg IV Q6HP PRN PRN Reason: Nausea And Vomiting Sodium Chloride (Saline Flush) 10 ml IV Q8 [facility] Admin: 03/10/19 06:29 Dose: 10 ml Documented by: Admin: 03/09/19 21:12 Dose: 10 ml Documented by: Admin: 03/09/19 16:19 Dose: 10 ml Documented by: Admin: 03/09/19 05:34 Dose: 10 ml Documented by: Admin: 03/08/19 23:10 Dose: Not Given Documented by: KYLEE Non-Admin Reason: Continuous IV Admin: 03/08/19 12:30 Dose: 10 ml Documented by: Admin: 03/08/19 05:29 Dose: 10 ml Documented by: Admin: 03/07/19 21:38 Dose: Not Given Documented by: JOSE Non-Admin Reason: Bag Still Infusing Assessment and Plan - Narrative A/P Narrative: A: 1. MSSA bacteremia: 1/2 blood Cx on 03/07 - on IV Cefazolin. On IV vanc (stopped 03/09) and Clindamycin (stopped 03/08) - TTE neg for any vegetations - sec to (2) 2. MSSA posterior neck carbuncle - resolving 3. Rt lower lung consolidation or effusion: - will get a CXR Recommendations: - Continue IV cefazolin 2 gm 8 hrs - If blood Cx sent on 03/09 are negative by tomorrow am, a single-lumen midline should be placed - Pt not a MRSA carrier per nasal swab, and on wound Cx. Given last MRSA swab +ve was in 2014; he does not need contact isolation - will plan for a 2 week course minimum of IV Cefazolin (counting from 1st day of neg blood Cx) and follow up in ID clinic - shared recs with Tawny BUCK) about arranging outpt Iv Cefazolin - CXR ordered will follow Roberto Carlos Patino MD Infectious diseases
--- NOTE | 2019-03-10 16:02 | XRay Report ---
CLINICAL INFORMATION: Cough COMPARISON: None. TECHNIQUE: PA and Lateral views FINDINGS: The heart size, mediastinum and pulmonary vessels are unremarkable. The lungs are clear. There are no effusions. The bones and soft tissues are within normal limits. IMPRESSION: Normal chest. Interpreted and Authenticated by: Freddie Benjamin 03/10/19
[2019-03-11] MEDS: ceFAZolin 1 GM VIAL IV SCH ×2 (06:06→13:57)
[2019-03-11] MEDS: 0.9 % SODIUM CHLORIDE 10 ML SYRINGE IV SCH ×2 (06:07→13:58)
[2019-03-11] MEDS: ENOXAPARIN 40 MG/0.4 ML SYRINGE SQ SCH (09:11)
[2019-03-11] MEDS: LACTOBACILLUS 1 CAPSULE PO SCH (09:11)
--- NOTE | 2019-03-11 09:26 | Internal Med Progress Note ---
Medical - PN: Subj Patient information: Note initiated : 03/11/19 at 9:24 am Service Date, if different from initiated Date: [] Patient: Elias Dotson a 33 y/o M admitted on 03/07/19 for Spider Bite. Chief Complaint: [] Interval history: Mr. Donaldo Osborne is a 33 year old M 33-year-old male presents the ED with increase neck pain and swelling. He believes he was bit by spider 1 week ago and started on antibiotics (Bactrim) by urgent care in [place] 2 days ago but is developed worsening of the symptoms. As well as pain in the area. He is from out of town visiting, but because of the progression decided to come in the ED. In the ED is found to have a leukocytosis and a weeping lesion of his posterior neck as well as involvement of the right side of neck. Patient also mildly tachycardic and elevated creatinine 1.3 as well as elevated CRP. Case was discussed with Dr. Xie and a CT neck with contrast was performed which per notes did not show any abscess or other findings other than cellulitis. She denies any fever chills. Patient denies any headaches although does have history of migraines. No vision changes. 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 03/08 Next chills warm swollen but feels his swelling has improved. No overnight events. Denies fevers or chills. 03/09 Patient fevers overnight. He reports increased swelling around the right side of his neck. Poor sleep. Transthoracic echo with no vegetations noted. Blood cultures growing MSSA. Denies shortness of breath or cough 03/10 Slept much better. Feeling better. Still has swelling but it feels like the swelling has improved some is able to rotate his neck a little bit he easier. No fevers overnight. No nausea. No chest pain cough or shortness of breath 03/11 Feeling well. Swelling continues to improve. No new complaints overnight events. Review of Systems: denies headache/fever/chills/nausea/vomiting/chest or abdominal pain/cough/dyspnea/diarrhea. Otherwise see above. - Constitutional Vitals: Vital Signs Temp Pulse Resp BP Pulse Ox 98.3 F 60 14 114/69 95 03/11/19 07:45 03/11/19 07:45 03/11/19 07:45 03/11/19 07:45 03/11/19 07:45 Period Temp Pulse Resp BP Sys/Alvarez Pulse Ox Last 24 Hr 97.0 F-98.6 F 47-60 14-16 90-114/52-70 95-99 Intake and Output 03/10/19 03/11/19 03/11/19 21:59 05:59 13:59 Intake Total 800 375 Balance 800 375 Weight 81.102 kg Intake & Output: Intake & Output 03/10/19 03/11/19 03/11/19 21:59 05:59 13:59 Intake Total 800 375 Balance 800 375 Weight 81.102 kg Intake: Oral 800 375 Other: Meal Dinner Percent of Meal Consumed 100% Feeding Ability Independent Urine Appearance Clear Urine Color Bright Yellow Urine Odor Normal # Voids 1 1 1 # Bowel Movements 1 Exam: General: Alert, Awake, No acute Distress Eyes/N/T: EOMI, Head/Neck: Erythema/tenderness/warmth to the posterior and right side of the neck - all improving CV: RRR, no murmur Pulm: Clear b/l, no wheezing/rhonchi/rales Abd: soft, nontender, +BS x4 Ext: no clubbing/cyanosis/edema Neuro: Alert, no focal deficits, moves all extremities, Skin: warm/dry, except neck see above Medical - PN: Obj Da - Labs CBC & Chem 7: 03/09/19 08:17 03/09/19 08:17 Labs: Abnormal Lab Results 03/09/19 03/09/19 08:17 08:17 RBC 4.06 L Hgb 12.9 L Hct 37.9 L ESR 34 H Calcium 8.2 L Phosphorus 2.4 L C-Reactive Protein 15.1 H Meds: Medications Acetaminophen (Tylenol) 650 mg PO Q6HP PRN; Protocol PRN Reason: Per Pain Protocol/Fever > 101 Last Admin: 03/09/19 13:23 Dose: 650 mg Documented by: Hydrocodone Bitart/Acetaminophen ([place] 5/325mg) 1 tab PO Q4HP PRN; Protocol PRN Reason: Per Pain Protocol Last Admin: 03/10/19 22:37 Dose: 1 tab Documented by: Cefazolin Sodium (Ancef) 2 gm IV Q8H [facility] Last Admin: 03/11/19 06:06 Dose: 2 gm Documented by: Diphenhydramine HCl (Benadryl) 25 mg IV Q4-6HP PRN PRN Reason: Allergic Symptoms Last Admin: 03/08/19 12:08 Dose: 25 mg Documented by: Enoxaparin Sodium (Lovenox) 40 mg SQ DAILY [facility] Last Admin: 03/11/19 09:11 Dose: 40 mg Documented by: Lactobacillus Rhamnosus (Culturelle) 1 cap PO BID [facility] Last Admin: 03/11/19 09:11 Dose: 1 cap Documented by: Morphine Sulfate (Morphine) 1 - 3 mg IV Q3HP PRN; Protocol PRN Reason: Per Pain Protocol Ondansetron HCl (Zofran) 4 mg IV Q6HP PRN PRN Reason: Nausea And Vomiting Sodium Chloride (Saline Flush) 10 ml IV Q8 [facility] Last Admin: 03/11/19 06:07 Dose: 10 ml Documented by: Medical - PN: A/P - Time Spent With Patient Total time spent is greater than 50% in coordination of care (as documented) at patient's floor/unit and/or counseling patient: - Narrative A/P Narrative: A: *Cellulitis of the neck/head: Failed outpatient bactrim. from spider bite -Case discussed with Dr. Granger from ED, also d/w with Dr. sanon -CT neck with cellulitis, no abscess -Improving *MSSA Bacteremia: 2/2 above -TTE no vegetations -repeat BC neg thus far *Leukocytosis/fever: 2/2 above -leukocytosis resolved -afebrile o/n *BASILIO: suspect bactrim related, improved * P: -IV Cefazolin -ID following -awaiting placement options -place midline once 03/09 BC confirmed negative -ppx: lovenox
--- NOTE | 2019-03-11 20:34 | Infectious Disease Prog Note ---
Subjective Patient information: Note initiated : 03/11/19 at 8:29 pm Service Date, if different from initiated Date: [] Patient: Elias Dotson 33 y/o M admitted on 03/07/19 for Spider Bite. Chief Complaint: [] Interval history: pt doing well. Feels ready to be discharged. Denied any fever, chills, n/v, diar wm. Discussed plans for follow up in ID clinic, and continuing IV Cefazolin through a midline. Pt mentioned that he doesnot use IV drugs, gets his UA checked 3 times per week and is on probation. He would go to [place] for 2 weeks but would return for follow up after 2 weeks. Objective Objective Narrative: ao x 3, in nad neck wound: both redness and swelling has gone down significantly. still has 3 sinus tracts with pus expressed on pressure, slightly tender chest cta - Vital Signs Vital signs: Vital Signs Temp Pulse Resp BP BP Pulse Ox 03/11/19 14:02 36.7 C 59 L 16 109/72 97 03/11/19 07:45 36.8 C 60 14 114/69 95 03/11/19 04:00 98 03/11/19 03:21 36.8 C 47 L 14 90/52 97 03/10/19 23:43 36.8 C 55 L 14 107/67 97 Intake and Output 03/11/19 03/11/19 03/11/19 05:59 13:59 21:59 Intake Total 375 Balance 375 Intake: Oral 375 Other: Meal Breakfast Percent of Meal Consumed 100% # Voids 1 1 # Bowel Movements 1 Intake & Output: Intake & Output 03/11/19 03/11/19 03/11/19 05:59 13:59 21:59 Intake Total 375 Balance 375 Intake: Oral 375 Other: Meal Breakfast Percent of Meal Consumed 100% # Voids 1 1 # Bowel Movements 1 - Lab 03/09/19 08:17 03/09/19 08:17 Most recent lab results Calcium 8.2 mg/dl (8.6-10.4) L 03/09/19 08:17 Phosphorus 2.4 mg/dL (2.7-4.5) L 03/09/19 08:17 Magnesium 2.4 mg/dL (1.6-2.5) 03/09/19 08:17 Microbiology 03/09/19 08:17 Blood Blood Culture - Preliminary 03/09/19 08:11 Blood Blood Culture - Preliminary 03/07/19 20:02 Blood Blood Culture - Preliminary 03/07/19 15:45 Neck - Insect Gram Stain - Final 03/07/19 15:45 Neck - Insect Abscess Culture - Final Staphylococcus aureus 03/08/19 17:15 Nose MRSA (PCR) - Final 03/07/19 19:56 Blood Blood Culture - Preliminary Gram positive cocci Assessment and Plan - Narrative A/P Narrative: A: 1. MSSA bacteremia: 1/2 blood Cx on 03/07 - on IV Cefazolin. On IV vanc (stopped 03/09) and Clindamycin (stopped 03/08) - TTE neg for any vegetations - sec to (2) 2. MSSA posterior neck carbuncle - resolving, with marked decline in redness, swelling size - expressed some pus on pressure during the visit followed by saline irrigation by Maria Antonia (wound care nurse) Recommendations: - Continue IV Cefazolin 2 gm 8 hrs, with stop date of 03/22/19 - Check CBC, BMP once next week. Fax results to: [phone] - ID f/u for 03/23 in [facility] - pt counseled to follow wound care instrcutions about neck wound and keep it clean Roberto Carlos Patino MD Infectious diseases
[2019-03-11] MEDS ORDERED: 0.9 % SODIUM CHLORIDE 10 ML SYRINGE IV SCH (21:00)
== END 2019-03-11 14:40 | disposition home or self-care (01) | DRG 603 ==
LOC: ED 14:59 → MEDSUR 14:59 → OBSVTOIN 20:22 → MEDSUR 03-10 15:59
PROVIDERS: ADMIT Internal Medicine; ATTEND Internal Medicine